=== PATIENT | female | born 1990 | race Caucasian/White ===

== ENCOUNTER 2016-07-18 21:15 | Emergency (ER) | payer OTHER ==
[2016-07-18 22:28] LABS: SPECIFIC GRAVITY 1.005 (1.001-1.030); URINE BILIRUBIN NEGATIVE (NEGATIVE); URINE BLOOD 3+ (NEGATIVE); URINE GLUCOSE (UA) NEGATIVE (NEGATIVE); URINE LEUKOCYTE ESTERASE NEGATIVE (NEGATIVE); URINE NITRITE NEGATIVE (NEGATIVE); URINE PROTEIN NEGATIVE (NEGATIVE); URINE UROBILINOGEN NORMAL (0-1 mg/dl)
[2016-07-18 22:31] LABS: URINE APPEARANCE CLEAR; URINE COLOR YELLOW
[2016-07-18 22:37] LABS: URINE BACTERIA 0; URINE EPITHELIAL CELLS FEW /hpf; URINE RBC 0-1 /hpf; URINE WBC NEG /hpf
[2016-07-18 23:05] LABS: HCG,QUALITATIVE URINE POSITIVE
[2016-07-18 23:40] LABS: ABSOLUTE NEUTROPHIL COUNT 8.9 K/mm3 (1.8-7.7); BASO # 0.1 K/mm3 (0.0-0.2); BASO % 0.4 % (0.2-1.0); EOS # 0.2 (0.0-0.5); EOS % 1.4 % (0.9-2.9); HEMATOCRIT 41.1 % (37.0-47.0); HEMOGLOBIN 13.7 gm/l (12.0-16.0); IMM NEUT # 0.1 K/mm3 (0-0.2); IMM NEUT% 0.4 % (0-1); LYMPH # 2.4 (1.0-4.8); LYMPH % 19.1 % (15-45); MEAN CELL VOLUME 91.3 fl (81.0-99.0); MEAN CORPUSCULAR HEMOGLOBIN 30.4 pg (27.0-31.0); MEAN CORPUSCULAR HGB CONC 33.3 g/dl (33.0-37.0); MEAN PLATELET VOLUME 10.7 fl (7.4-10.4); MONO # 0.7 (0.0-0.8); MONO % 5.9 % (4-12); NEUT % 72.8 % (43-75); PLATELET COUNT 289 K/mm3 (130-400); RED CELL DISTRIBUTION WIDTH 12.8 % (11.5-14.5)
[2016-07-18 23:59] LABS: ALB/GLOB RATIO 1.2 (>1.0); ALBUMIN 4.1 gm/dL (3.5-5.7); CALCIUM 9.8 mg/dL (8.6-10.3)
--- NOTE | 2016-07-19 08:19 | US ---
OB ULTRASOUND LESS THAN 14 WEEKS HISTORY: Vaginal bleeding. 8 weeks 5 days. Transabdominal and transvaginal obstetric ultrasound was performed. FINDINGS: INTRAUTERINE GESTATION: Present. MEAN SAC DIAMETER: 3.4 cm, corresponding to an age of 8 weeks 3 days. Sac morphology and fluid volume grossly unremarkable. CROWN-RUMP LENGTH: 2 cm, corresponding to an age of 8 weeks 4 days. CARDIAC ACTIVITY: Present, with a heart rate of 160 beats per minute. Somatic motion not identified. SONOGRAPHIC MEAN GESTATIONAL AGE: 8 weeks 4 days. SONOGRAPHIC EDC: 02/23/2017. YOLK SAC: Present. SIOBHAN-GESTATIONAL HEMORRHAGE: Present at the right anterior aspect, seen along approximately one quarter of the sac circumference. This measures 2.9 x 1.9 x 0.8 cm in size. CERVIX: Minor endocervical fluid noted. RIGHT OVARY: 3.1 x 2.0 x 2.0 cm.. LEFT OVARY: 3.5 x 3.3 x 2.3 cm. FOCAL ADNEXAL LESIONS: Complex cystic lesion of the left ovary, 2.5 x 2.2 x 2.0 cm in size. OVARIAN BLOOD FLOW: Documented bilaterally. FREE FLUID: None. IMPRESSION: Single live intrauterine gestation sonographically dating 8 weeks 4 days, with perigestational hemorrhage evident. Probable 2.5 cm corpus luteum cyst. No dominant adnexal mass lesion, preserved ovarian blood flow. Minor endocervical fluid, which may correlate with the history of vaginal bleeding. Preliminary report relayed to the Emergency Medicine medical service by Dr. Mace on 07/19/2016 at 0047 hours
== END 2016-07-19 01:44 | disposition home or self-care (01) ==
LOC: ED 21:15
DX: O20.0 Threatened abortion (principal); Z3A.01 Less than 8 weeks gestation of pregnancy